=== PATIENT | male | born 1990 | race Caucasian/White ===

== ENCOUNTER 2018-02-14 21:48 | Emergency (ER) | payer MEDICAID ==
--- NOTE | 2018-02-14 21:59 | EDPHY ---
H & P Time Seen by Provider: 02/14/18 21:53 HPI/ROS: CHIEF COMPLAINT: Right foot pain HISTORY OF PRESENT ILLNESS: The patient is a 27-year-old healthy man who was trying to kick a ball for his dog when he accidentally kicked a tree stump. He had direct impact and pain to the bridge of his foot just below the ankle joint. This was several hours ago. He has not had any swelling but has pain with weight-bearing. No deformity. Denies ankle or knee injury. REVIEW OF SYSTEMS: Constitutional: denies: chills, fever, recent illness, recent injury EENTM: denies: blurred vision, double vision, nose congestion Respiratory: denies: cough, shortness of breath Cardiac: denies: chest pain, irregular heart rate, lightheadedness, palpitations Gastrointestinal/Abdominal: denies: abdominal pain, diarrhea, nausea, vomiting, blood streaked stools Genitourinary: denies: dysuria, frequency, hematuria, pain Musculoskeletal: See HPI Skin: denies: lesions, rash, jaundice, bruising Neurological: denies: headache, numbness, paresthesia, tingling, dizziness, weakness Hematologic/Lymphatic: denies: blood clots, easy bleeding, easy bruising Immunologic/allergic: denies: HIV/AIDS, transplant EXAM: GENERAL: Well-appearing, well-nourished and in no acute distress. HEAD: Atraumatic, normocephalic. EYES: Pupils equal round and reactive to light, extraocular movements intact, sclera anicteric, conjunctiva are normal. ENT: TMs normal, nares patent, oropharynx clear without exudates. Moist mucous membranes. NECK: Normal range of motion, supple without lymphadenopathy or JVD. LUNGS: Breath sounds clear to auscultation bilaterally and equal. No wheezes rales or rhonchi. HEART: Regular rate and rhythm without murmurs, rubs or gallops. ABDOMEN: Soft, nontender, normoactive bowel sounds. No guarding, no rebound. No masses appreciated. BACK: No CVA tenderness, no spinal tenderness, step-offs or deformities EXTREMITIES: No obvious deformity or swelling. Pain with weight-bearing in the area of the navicular bone. Normal range of motion, no pitting or edema. No clubbing or cyanosis. No pain to toes or metacarpal bone. NEUROLOGICAL: Cranial nerves II through XII grossly intact. Normal speech, normal gait. 5/5 strength, normal movement in all extremities, normal sensation PSYCH: Normal mood, normal affect. SKIN: Warm, dry, normal turgor, no visible rashes or lesions. Source: Patient Exam Limitations: No limitations - Medical/Surgical History Hx Asthma: No Hx Chronic Respiratory Disease: No Hx Diabetes: No Hx Cardiac Disease: No Hx Renal Disease: No Hx Cirrhosis: No Hx Alcoholism: No Hx HIV/AIDS: No Hx Splenectomy or Spleen Trauma: No - Social History Smoking Status: Former smoker Alcohol Use: Sober Constitutional: Initial Vital Signs Temperature (C) 37 C 02/14/18 22:03 Heart Rate 75 02/14/18 22:03 Respiratory Rate 16 02/14/18 22:03 Blood Pressure 135/76 H 02/14/18 22:03 O2 Sat (%) 96 02/14/18 22:03 O2 Delivery Mode Room Air Allergies/Adverse Reactions: clindamycin Allergy (Severe, Verified 02/14/18 22:03) Anaphylaxis Home Medications: Medication Instructions Recorded Chantix 07/05/16 Medical Decision Making - Diagnostics Imaging Results: Imaging Impressions Foot X-Ray 02/14/18 21:56 Impression: Equivocal fracture is seen at the base of the distal phalanx of the right first toe. Results called and discussed with ABHISHEK JANE M.D. on 02/14/2018 at 22:16.. Imaging: Discussed imaging studies w/ lockstitch pocket setter Radiologist Procedures: Procedure: Splint placement. A [place] boot splint was applied. After application of the splint I returned and re-examined the patient. The splint was adequately immobilizing the joint and distal to the splint the patient's circulation and sensation was intact. ED Course/Re-evaluation: We discussed the x-ray results. Patient is reassured. Replaced him in a [place] boot and encouraged early mobilization and weight-bearing as tolerated. He is happy with this and declines further workup or testing. Differential Diagnosis: Partial list of the Differential diagnosis considered include but were not limited to; contusion, fracture, ligamentous injury and although unlikely based on the history and physical exam, I also considered ankle injury, knee injury. I discussed these differential diagnoses and the plan with the patient as well as the usual and expected course. The patient understands that the diagnosis is provisional and that in medicine we are not always correct and that further workup is often warranted. Usual and customary warnings were given. All of the patient's questions were answered. The patient was instructed to return to the emergency department should the symptoms at all worsen or return, otherwise to followup with the physician as we discussed. Departure - Departure Disposition: Home, Routine, Self-Care Clinical Impression: Contusion of right foot Qualifiers: Encounter type: initial encounter Qualified Code(s): S90.31XA - Contusion of right foot, initial encounter Condition: Fair Instructions: Foot Sprain (ED) Referrals: Abner Burgess DPM [Doctor of Podiatric Medicine] - As per Instructions Stand Alone Forms: Work Excuse
[2018-02-14 22:06] VITALS: BP 135/76
== END 2018-02-14 22:33 | disposition home or self-care (01) ==
LOC: CED 21:48
DX: S90.31XA Contusion of right foot, initial encounter (principal); Z87.891 Personal history of nicotine dependence; W22.8XXA Striking against or struck by other objects, initial encounter; Y99.8 Other external cause status; Y93.89 Activity, other specified
CPT/HCPCS: 73630-PO; L4386

== ENCOUNTER 2018-11-14 11:04 | Emergency (ER) | payer MEDICAID ==
[2018-11-14] MEDS ORDERED: ASPIRIN 81 MG CHEWABLE TAB PO ONE (11:14)
--- NOTE | 2018-11-14 12:04 | EDPHY ---
H & P Stated Complaint: chest pain since 0700 this am Time Seen by Provider: 11/14/18 11:43 HPI/ROS: This patient describes chest pressure of moderate intensity since shortly after 7:00 a.m. This morning. He has had similar episodes of chest pressure at times over the past 3 years and in June of 2016 underwent cardiac catheterization by Dr. Newman which demonstrated normal coronary arteries at that time. He also has had syncope that was abrupt in the past which triggered further workup that included a Holter monitor with either frequent PACs or runs of paroxysmal AFib by his description. He also had a cardiac stress test which was normal per his report. He sees Dr. Russell and he reports that he just finished another outpatient Holter monitor after being started on a rivf-[id number]-iyzzsfshth 25 mg daily in the evening. He completed the Holter monitor on November 07 but does know the results yet. He has the sense that he gets the same pressure when he is having atrial fibrillation in the past. He reports some lightheadedness sister this morning symptoms and no other exacerbating factors or associated symptoms. ROS: Constitutional: No fevers or chills recently. Denies fatigue HEENT: No URI symptoms or other complaints pulmonary: No dyspnea Cardiovascular: No lower extremity swelling. Pain does not radiate to his back. No jaw or arm pain. Peak intensity 7/10, currently 3/10. GI: No nausea Integumentary: No diaphoresis or pallor. 10 point review of symptoms is performed and otherwise negative with exception of pertinent positives and negatives listed in HPI and ROS Source: Patient Exam Limitations: No limitations - Personal History Current Tetanus Diphtheria and Acellular Pertussis (TDAP): Yes - Medical/Surgical History PMH: Normal coronary arteries on cardiac catheterization by Dr. 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 - Family History Significant Family History: Heart disease - Social History Smoking Status: Former smoker Alcohol Use: None Drug Use: None - Physical Exam Exam: General Appearance: Alert, no distress. Eyes: Pupils equal and round no pallor or injection. ENT, Mouth: Mucous membranes moist. Respiratory: There are no retractions, lungs are clear to auscultation. Cardiovascular: Regular most the time occasional gallops. No murmur gallop rub. No peripheral edema. Gastrointestinal: Abdomen is soft and nontender, no masses, bowel sounds normal. Neurological: GCS 15 Skin: Warm and dry, no rashes. Musculoskeletal: Neck is supple nontender. Extremities are symmetrical, full range of motion. Psychiatric: Mood and affect are normal DIFFERENTIAL DIAGNOSIS: After history and physical exam differential diagnosis was considered for paroxysmal AFib, GERD, pneumonia, pneumothorax, PE Constitutional: Initial Vital Signs Temperature (C) 37.1 C 11/14/18 11:09 Heart Rate 57 L 11/14/18 11:09 Respiratory Rate 16 11/14/18 11:09 Blood Pressure 141/87 H 11/14/18 11:09 O2 Sat (%) 97 11/14/18 11:09 O2 Delivery Mode Room Air Allergies/Adverse Reactions: clindamycin Allergy (Severe, Verified 11/14/18 13:43) Anaphylaxis Home Medications: Medication Instructions Recorded Metoprolol Succinate 11/14/18 Medical Decision Making - Diagnostics EKG Interpretation: 12 lead EKG performed shortly after arrival at 11:20 a.m. Reveals sinus rhythm at 54 Intervals: Normal throughout [place]: Normal throughout Overall assessment: Early repolarization anterior leads, PACs Repeat EKG performed at 2:31 p.m. To evaluate for any interval change sinus rhythm at 57 intervals: Normal throughout Early report pattern with again PACs. No interval change from 1st EKG by my interpretation Imaging Results: Imaging Impressions Chest X-Ray 11/14/18 12:52 Impression: Possible airways disease. Two view chest x-ray: Normal by my interpretation Imaging: I viewed and interpreted images myself ED Course/Re-evaluation: IV, monitor, saline bolus Patient remained stable on the monitor with occasional PACs verses brief runs of slow AFib rate never exceeded the 60s at times the 50s. Maalox and Levsin without significant change in his discomfort she remained 2-3 pressure-like in sensation. Studies: Normal CBC, basic metabolic panel, troponin and D-dimer. Chest x-ray also normal. I spoke with Anders, mid-level practitioner with [facility] who reviewed the patient's Holter monitor completed 5 days prior to arrival and noted fleeting episodes of atrial fibrillation associated with chest discomfort lasted no more than a few minutes at a time and comprised less than 1% of the total duration of time. Patient also had frequent PACs. He suggests that we start the patient on baby aspirin a day and continue the current metoprolol 25 mg a day. Anders will facilitate close follow up with Dr. Russell, patient's marketing operations assistant. Counseled patient has normal studies. He explains that he had a recent Holter monitor and has a follow-up appointment set for the of this month with Cardiology. He had swelling to make sure there were no new problems and thinks that this current chest pressure is consistent with his previous chest pressure he has had with PACs or brief AFib. He is offered admission for some ongoing discomfort but declines at this time. - Data Points Laboratory Results: 11/14/18 11/14/18 11:39 11:34 POC Sodium 141 mEq/L mEq/L (135-145) POC Potassium 4.1 mEq/L mEq/L (3.3-5.0) POC Chloride 105.0 mEq/L mEq/L (97-110) POC Total CO2 26 mEq/L mEq/L (22-31) POC BUN 9 mg/dL mg/dL (7-23) POC Creatinine 0.7 mg/dL mg/dL (0.7-1.3) POC Glucose 99 mg/dL mg/dL (70-100) POC Calcium 10.3 mg/dL mg/dL (8.5-10.4) POC Troponin I 0.00 ng/mL ng/mL (0.00-0.08) Medications Given: Discontinued Medications Al Hydroxide/Mg Hydroxide (Maalox Susp) 30 ml PO EDNOW ONE Stop: 11/14/18 13:28 Last Admin: 11/14/18 14:00 Dose: 30 ml Aspirin (Aspirin) 324 mg PO EDNOW ONE Stop: 11/14/18 11:15 Last Admin: 11/14/18 11:25 Dose: 324 mg Hyoscyamine Sulfate (Levsin, Hyomax-Sl) 0.125 mg PO EDNOW ONE Stop: 11/14/18 13:28 Last Admin: 11/14/18 14:00 Dose: 0.125 mg Sodium Chloride (Ns) 1,000 mls @ 0 mls/hr IV ONCE ONE; Wide Open PRN Reason: Protocol Stop: 11/14/18 14:26 Last Admin: 11/14/18 14:29 Dose: 1,000 mls Point of Care Test Results: CBC CBC Collection Date 11/14/18 CBC Collection Time 11:31 WBC 5.64 RBC 5.27 HGB 16.1 HCT 46.5 PLT 185 Neut # 3.09 Neut 54.6 LYMPH # 1.74 LYMPH 30.9 MCV 88.2 Chemistry 11/14/18 11/14/18 11:39 11:34 POC Sodium 141 mEq/L mEq/L (135-145) POC Potassium 4.1 mEq/L mEq/L (3.3-5.0) POC Chloride 105.0 mEq/L mEq/L (97-110) POC Total CO2 26 mEq/L mEq/L (22-31) POC BUN 9 mg/dL mg/dL (7-23) POC Creatinine 0.7 mg/dL mg/dL (0.7-1.3) POC Glucose 99 mg/dL mg/dL (70-100) POC Calcium 10.3 mg/dL mg/dL (8.5-10.4) POC Troponin I 0.00 ng/mL ng/mL (0.00-0.08) D-Dimer D-Dimer Collection Date 11/14/18 D-Dimer Collection Time 11:31 D-Dimer (ng/ml) LESS THAN 100 Departure - Departure Disposition: Home, Routine, Self-Care Clinical Impression: Acute chest pain, Premature atrial contractions Condition: Good Instructions: Chest Pain (ED) Additional Instructions: Diagnosis: Acute chest pain Today your chest x-ray, blood count, heart enzyme and D-dimer are normal. You EKG also appears normal exception of a few premature atrial contractions. The cause of your chest pain is unclear. Plan: Start taking a baby aspirin (81mg) a day. Continue your metoprolol. Consider trying antacids as sometimes people have acid reflux causing soft feel discomfort. Call your marketing operations assistant arrange follow-up appointment for further evaluation for any ongoing symptoms. Return emergency department for any significant worsening of her symptoms Referrals: [facility] [Primary Care Provider] - As per Instructions Joe Russell MD [Medical Doctor] - As per Instructions
[2018-11-14] MEDS ORDERED: HYOSCYAMINE SULFATE 0.125 MG TAB PO ONE (13:27)
[2018-11-14] MEDS ORDERED: MAG HYDROX/AL HYDROX/SIMETH 30 ML UDCUP PO ONE (13:27)
[2018-11-14] MEDS ORDERED: NS 1,000 ML IV ONE (14:25)
--- NOTE | 2018-11-14 14:38 | CPEKG ---
Test Reason : OPEN Blood Pressure : / mmHG Vent. Rate : 054 BPM Atrial Rate : 000 BPM P-R Int : 126 ms QRS Dur : 092 ms QT Int : 398 ms P-R-T Axes : 049 001 040 degrees QTc Int : 378 ms Sinus rhythm Atrial premature complexes ST elev, probable normal early repol pattern Confirmed by Zhang Quinn ([id number]) on 11/14/2018 2:38:23 PM Referred By: PHYSICIAN ED Confirmed By:Zhang Quinn
--- NOTE | 2018-11-14 14:38 | CPEKG ---
Test Reason : OPEN Blood Pressure : / mmHG Vent. Rate : 057 BPM Atrial Rate : 059 BPM P-R Int : 162 ms QRS Dur : 081 ms QT Int : 412 ms P-R-T Axes : -07 -01 035 degrees QTc Int : 401 ms Sinus rhythm Atrial premature complexes Probable left atrial enlargement ST elev, probable normal early repol pattern Confirmed by Carley Busby ([id number]) on 11/14/2018 2:38:00 PM Referred By: CARLEY BUSBY Confirmed By:Carley Busby
[2018-11-14 15:17] VITALS: BP 127/86
== END 2018-11-14 15:00 | disposition home or self-care (01) ==
LOC: CED 11:04
DX: R07.89 Other chest pain (principal); I49.1 Atrial premature depolarization; I48.0 Paroxysmal atrial fibrillation; E86.9 Volume depletion, unspecified; Z87.891 Personal history of nicotine dependence
CPT/HCPCS: 71046-PO; 80048-ER; 84484-ER; 85025-QW-ER; 85379-QW-ER; 96360-ER; 99284-ER

== ENCOUNTER 2018-11-18 17:54 | Inpatient (IN) | payer MEDICAID ==
--- NOTE | 2018-11-18 18:12 | EDPHY ---
H & P Stated Complaint: CP/AFTER TAKING ISOSORBIDE MONONITRATE Time Seen by Provider: 11/18/18 18:11 HPI/ROS: HPI CHIEF COMPLAINT: Headache, nausea, vomiting, chest pain after taking isosorbide mononitrate HISTORY OF PRESENT ILLNESS: A 28-year-old male, presents to the emergency room after he took a dose of Isosorbinide mononitrate, after as prescribed this today by Dr. Russell, he was prescribed this today, took a dose around 230 in the afternoon he was taking this to see if it helps with his chest pressure that he chronically has. He reports shortly after taking this he developed a headache felt very nauseous felt like he was going to pass out, developed chest pain. He states pressure in his chest got worse. He then vomited multiple times. States he feels "awful" Patient is followed by Dr. Russell, for ongoing chest pain evaluation. He had a normal cardiac catheterization 2015. Recently had a Holter monitor. Past Medical History: Denies significant medical history Past Surgical History: Denies recent surgical history Social History: Denies daily use of drugs alcohol tobacco. Family History: Extensive family history of cardiac disease including his father and his grandfather. ROS REVIEW OF SYSTEMS: 10 Systems were reviewed and negative with the exception of the elements mentioned in the history of present illness. Exam Constitutional triage nursing summary reviewed, vital signs reviewed, awake/ alert. Eyes normal conjunctivae and sclera, EOMI, PERRLA. HENT normal inspection, atraumatic, moist mucus membranes, no epistaxis, neck supple/ no meningismus, no raccoon eyes. Respiratory clear to auscultation bilaterally, normal breath sounds, no respiratory distress, no wheezing. Cardiovascular rate normal, regular rhythm, no murmur, no edema, distal pulses normal. Gastrointestinal soft, non-tender, no rebound, no guarding, normal bowel sounds, no distension, no pulsatile mass. Genitourinary no CVA tenderness. Musculoskeletal no midline vertebral tenderness, full range of motion, no calf swelling, no tenderness of extremities, no meningismus, good pulses, neurovascularly intact. Skin pink, warm, & dry, no rash, skin atraumatic. Neurologic awake, alert and oriented x 3, AAOx3, moves all 4 extremities equally, motor intact, sensory intact, CN II-XII intact, normal cerebellar, normal vision, normal speech. Psychiatric normal mood/affect. Heme/Lymph/Immune no lymphadenopathy. Differential Diagnosis: Differential diagnosis includes but is not limited to: ACS, atypical chest pain, pneumothorax, pneumonia, pulmonary embolism, aortic dissection, congestive heart failure, tumor, musculoskeletal pain, esophageal pain, GERD, peptic ulcer disease, pancreatitis Medical Decision Making: Plan for this patient IV establishment IV fluid bolus , Zofran as needed for nausea, basic labs, monitoring tech. EKG, troponin. Re-evaluation: EKG interpretation by me on record in [facility] system. Impression time of EKG 18 14, sinus rhythm rate of 47 early Re-dorene pattern present. No acute ischemia. Very similar to previous EKGs specifically 11/14/2018. I do not appreciate acute change. I spoke with Cardiology Dr. Russell, reviewed the case in detail. He would like the patient be admitted for gentle IV fluids overnight and nausea medicine re- evaluation. Here in emergency room I do have a great explanation for his chest pain. His EKG is nonischemic, troponin negative, D-dimer negative, chest x-ray stable. Plan for admission to the hospitalist service Dr. Duenas. 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 - Social History Smoking Status: Former smoker Constitutional: Initial Vital Signs Heart Rate 59 L 11/18/18 18:00 Respiratory Rate 16 11/18/18 18:00 Blood Pressure 126/78 H 11/18/18 18:00 O2 Sat (%) 97 11/18/18 18:00 O2 Delivery Mode Nasal Cannula O2 (L/minute) 1 Allergies/Adverse Reactions: clindamycin Allergy (Severe, Verified 11/14/18 13:43) Anaphylaxis Home Medications: Medication Instructions Recorded Metoprolol Tartrate 25 mg PO HS 11/14/18 Ibuprofen [Motrin (*)] 600 mg PO Q6H PRN tab 11/20/18 Medical Decision Making - Data Points Laboratory Results: Laboratory Results 11/18/18 18:10 11/18/18 18:10 Medications Given: Discontinued Medications Acetaminophen (Tylenol) 1,000 mg PO EDNOW ONE Stop: 11/18/18 19:42 Last Admin: 11/18/18 19:44 Dose: 1,000 mg Acetaminophen/Butalbital/Caffeine (Fioricet) 1 each PO Q6HRS PRN PRN Reason: Headache Stop: 11/28/18 20:54 Last Admin: 11/18/18 23:54 Dose: 1 each Aspirin (Aspirin) 81 mg PO DAILY LILIA Stop: 05/18/19 08:59 Last Admin: 11/20/18 09:00 Dose: Not Given Sodium Chloride (Ns) 1,000 mls @ 0 mls/hr IV EDNOW ONE; Wide Open PRN Reason: Protocol Stop: 11/18/18 18:15 Last Admin: 11/18/18 18:25 Dose: 1,000 mls Sodium Chloride (Ns) 1,000 mls @ 0 mls/hr IV ONCE ONE PRN Reason: Wide Open Stop: 11/18/18 18:24 Last Admin: 11/18/18 18:25 Dose: 1,000 mls Sodium Chloride (Ns) 1,000 mls @ 125 mls/hr IV CONT LILIA Stop: 11/20/18 04:59 Last Admin: 11/19/18 06:36 Dose: 1,000 mls Ibuprofen (Motrin) 600 mg PO Q6H PRN PRN Reason: Pain, Mild Stop: 05/17/19 20:49 Last Admin: 11/19/18 10:14 Dose: 600 mg Metoprolol Tartrate (Lopressor) 25 mg PO HS LILIA Stop: 05/17/19 20:59 Last Admin: 11/19/18 21:48 Dose: 25 mg Ondansetron HCl (Zofran) 4 mg IVP EDNOW ONE Stop: 11/18/18 18:25 Last Admin: 11/18/18 18:27 Dose: 4 mg Tramadol HCl (Ultram) 50 mg PO ONCE ONE Stop: 11/19/18 04:33 Last Admin: 11/19/18 04:51 Dose: 50 mg Point of Care Test Results: Chemistry 11/18/18 18:14 POC Troponin I 0.00 ng/mL ng/mL (0.00-0.08) Departure - Departure Disposition: [facility] Acute Clinical Impression: Chest pain Qualifiers: Chest pain type: unspecified Qualified Code(s): R07.9 - Chest pain, unspecified Condition: Fair
[2018-11-18] MEDS ORDERED: NS 1,000 ML IV ONE ×2 (18:14→18:23)
[2018-11-18] MEDS ORDERED: ONDANSETRON 4 MG/2 ML VIAL IVP ONE (18:24)
[2018-11-18 18:29] LABS: PLATELET COUNT 211 10^3/uL (150-400)
[2018-11-18] MEDS ORDERED: ACETAMINOPHEN 500 MG TAB PO ONE (19:41)
[2018-11-18] MEDS ORDERED: PROMETHAZINE HCL 25 MG/ML INJ IVP PRN (20:46)
[2018-11-18] MEDS ORDERED: ACETAMINOPHEN 325 MG TAB PO PRN (20:46)
[2018-11-18] MEDS ORDERED: ONDANSETRON 4 MG/2 ML VIAL IVP PRN (20:46)
[2018-11-18] MEDS ORDERED: ONDANSETRON DISINTEGRATING 4 MG TAB PO PRN (20:46)
[2018-11-18] MEDS ORDERED: ACET/CAFFEINE/BUTA FIORICET 1 EACH TAB PO PRN (20:55)
--- NOTE | 2018-11-18 21:08 | PDGENHP ---
<Jennifer Merida - Last Filed: 11/18/18 21:56> History and Physical - Chief Complaint Severe headache, vomiting, nausea - History of Present Illness This is a 28-year-old male with history of chronic chest pain, onset was in 2016 and current being followed by Dr. Joe Russell. Today he presented to the emergency room with his after taking a dose of isosorbide mononitrate which was prescribed today by Dr. Russell. Shortly after taking this medication he experienced severe headache, nausea, lightheadedness, and vomiting multiple times; during this time his chest pain worsened. He had a [facility] office visit today as he continue to note episodic chest discomfort; he was recently placed on a Holter monitor with the results revealing atrial fibrillation burden of approximately less than 1% (5 min of atrial fibrillation was noted on 10/18/2018 early in the morning). In the past, he has had normal cardiac catheterization testing which was in 2016 and an exercise stress test treadmill with no arrhythmias noted. The patient has been compliant with his medications which include aspirin and metoprolol. He recently visited the emergency room on 11/14/2018 for similar chest pain complaints. Today while working with Dr. Russell, he wanted the patient to trial a low-dose Imdur. Endorses very mild chest pain complaints located midsternal area. Endorses continuation of severe headache with mild nausea. Denies shortness of breath, fever, chills, or difficulty urinating or having bowel movements. Chest x-ray today shows mild peribronchial thickening suggestive of reactive small airways as can be seen in bronchitis or asthma. He was a former smoker, stopped 1 year ago. EKG was in sinus rhythm and normal axis with no acute ischemia noted; EKG was very similar to previous EKG on 11/14/2018. He is being admitted for further workup, treatment and monitoring. 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 White blood count: 9 point to to Hemoglobin and hematocrit: 16.2 and 46.5 Platelet count: 211 Sodium: 140 Potassium: 3.9 Chloride; 104 Carbon dioxide: 25 BUN/Cr: 18/1.0 D-dimer: Less than 0.27 Toxicity screen: Negative Troponin: 0.00 EKG: See HPI Chest x-ray: See HPI Temp Pulse Resp BP Pulse Ox 36.7 C 70 17 114/79 97 11/18/18 19:45 11/18/18 20:47 11/18/18 20:47 11/18/18 20:21 11/18/18 20:47 Constitutional: uncomfortable Eyes: PERRL, anicteric sclera, EOMI Ears, Nose, Mouth, Throat: hearing normal, ears appear normal, no oral mucosal ulcers, dry mucous membranes Cardiovascular: regular rate and rhythym, no murmur, rub, or gallop, No edema Peripheral Pulses: 2+: dorsalis-pedis (R), dorsalis-pedis (L) Respiratory: no respiratory distress, no rales or rhonchi, clear to auscultation Gastrointestinal: normoactive bowel sounds, soft, non-tender abdomen, no palpable masses Genitourinary: no bladder fullness, no bladder tenderness Skin: warm, normal color, no rashes or abrasions, no fluctuance, no induration, No mottled Musculoskeletal: full muscle strength, no muscle tenderness, normal joint ROM, no joint effusions Neurologic: AAOx3, sensation intact bilaterally, CN II-XII Intact Psychiatric: interacting appropriately, not anxious, not encephalopathic, thought process linear Lymph, Heme, Immunologic: no cervical LAD, no supraclavicular LAD Lab Data & Imaging Review 11/18/18 18:10 11/18/18 18:10 WBC 9.22 10^3/uL (3.80-9.50) 11/18/18 18:10 RBC 5.22 10^6/uL (4.40-6.38) 11/18/18 18:10 Hgb 16.2 g/dL (13.7-17.5) 11/18/18 18:10 Hct 46.5 % (40.0-51.0) 11/18/18 18:10 MCV 89.1 fL (81.5-99.8) 11/18/18 18:10 MCH 31.0 pg (27.9-34.1) 11/18/18 18:10 MCHC 34.8 g/dL (32.4-36.7) 11/18/18 18:10 RDW 12.4 % (11.5-15.2) 11/18/18 18:10 Plt Count 211 10^3/uL (150-400) 11/18/18 18:10 MPV 10.8 fL (8.7-11.7) 11/18/18 18:10 Neut % (Auto) 63.0 % (39.3-74.2) 11/18/18 18:10 Lymph % (Auto) 24.2 % (15.0-45.0) 11/18/18 18:10 Linn % (Auto) 8.8 % (4.5-13.0) 11/18/18 18:10 Eos % (Auto) 3.4 % (0.6-7.6) 11/18/18 18:10 Baso % (Auto) 0.4 % (0.3-1.7) 11/18/18 18:10 Nucleat RBC Rel Count 0.0 % (0.0-0.2) 11/18/18 18:10 Absolute Neuts (auto) 5.81 10^3/uL (1.70-6.50) 11/18/18 18:10 Absolute Lymphs (auto) 2.23 10^3/uL (1.00-3.00) 11/18/18 18:10 Absolute Monos (auto) 0.81 10^3/uL (0.30-0.80) H 11/18/18 18:10 Absolute Eos (auto) 0.31 10^3/uL (0.03-0.40) 11/18/18 18:10 Absolute Basos (auto) 0.04 10^3/uL (0.02-0.10) 11/18/18 18:10 Absolute Nucleated RBC 0.00 10^3/uL (0-0.01) 11/18/18 18:10 Immature Gran % 0.2 % (0.0-1.1) 11/18/18 18:10 Immature Gran # 0.02 10^3/uL (0.00-0.10) 11/18/18 18:10 D-Dimer < 0.27 ug/mLFEU (0.00-0.50) 11/18/18 18:10 Sodium 140 mEq/L (135-145) 11/18/18 18:10 Potassium 3.9 mEq/L (3.5-5.2) 11/18/18 18:10 Chloride 104 mEq/L (97-110) 11/18/18 18:10 Carbon Dioxide 25 mEq/l (22-31) 11/18/18 18:10 Anion Gap 11 mEq/L (6-14) 11/18/18 18:10 BUN 18 mg/dL (7-23) 11/18/18 18:10 Creatinine 1.0 mg/dL (0.7-1.3) 11/18/18 18:10 Estimated GFR > 60 11/18/18 18:10 Glucose 90 mg/dL (70-100) 11/18/18 18:10 Calcium 9.5 mg/dL (8.5-10.4) 11/18/18 18:10 Magnesium 1.8 mg/dL (1.6-2.3) 11/18/18 18:10 Total Bilirubin 0.6 mg/dL (0.1-1.4) 11/18/18 18:10 Conjugated Bilirubin 0.3 mg/dL (0.0-0.5) 11/18/18 18:10 Unconjugated Bilirubin 0.3 mg/dL (0.0-1.1) 11/18/18 18:10 AST 28 IU/L (17-59) 11/18/18 18:10 ALT 58 IU/L (21-72) 11/18/18 18:10 Alkaline Phosphatase 45 IU/L (38-126) 11/18/18 18:10 POC Troponin I 0.00 ng/mL (0.00-0.08) 11/18/18 18:14 NT-Pro-B Natriuret Pep < 11 pg/mL (0-125) 11/18/18 18:10 Total Protein 7.4 g/dL (6.3-8.2) 11/18/18 18:10 Albumin 4.5 g/dL (3.5-5.0) 11/18/18 18:10 Lipase 166 IU/L (23-300) 11/18/18 18:10 Urine Opiates Screen NEGATIVE (NEGATIVE) 11/18/18 19:37 Urine Barbiturates NEGATIVE (NEGATIVE) 11/18/18 19:37 Ur Phencyclidine Scrn NEGATIVE (NEGATIVE) 11/18/18 19:37 Ur Amphetamine Screen NEGATIVE (NEGATIVE) 11/18/18 19:37 U Benzodiazepines Scrn NEGATIVE (NEGATIVE) 11/18/18 19:37 Urine Cocaine Screen NEGATIVE (NEGATIVE) 11/18/18 19:37 U Marijuana (THC) Screen NEGATIVE (NEGATIVE) 11/18/18 19:37 Assessment & Plan Plan: This is a 28-year-old male who is relatively healthy who has chronic chest pain , he is being current [place] followed by Dr. Joe Russell who saw the patient today at his clinic and initiated Imdur along with his typical aspirin and metoprolol. Pretty soon after taking Imdur he experienced a severe headache, nausea, and vomiting and complained of worsening chest pain. At present moment , chest pain is quite mild. Initial troponin presenting to the emergency room was 0.00. His vital signs are: Blood pressure 105/70, heart rate 60, respirations 16, temperature 36.7 degrees, and 97% on room air. #Nausea and vomiting -Received 2 L NS in ED; cont IVF x 2 bags -Anti-emetics PRN #Severe headache -Received 1gm Tylenol in ED; tylenol, Fioricet or ibuprofen PRN #Atypical chest pain -Holding imdur, cont metoprolol and ASA -Consulted cards who will evaluate the pt in AM -Check troponin in AM -Cont tele monitoring -EKG PRN if symptomatic or worsens Diet: Regular VTE ppx: Low risk Code: Full Dispo: Admit to obs <Brittni Duenas - Last Filed: 11/18/18 22:23> History and Physical - History of Present Illness Review of Systems Review of Systems: Physical Exam Physical Exam: Temp Pulse Resp BP Pulse Ox 36.5 C 66 16 107/63 93 11/18/18 21:37 11/18/18 21:37 11/18/18 21:37 11/18/18 21:37 11/18/18 21:37 Lab Data & Imaging Review 11/18/18 18:10 11/18/18 18:10 WBC 9.22 10^3/uL (3.80-9.50) 11/18/18 18:10 RBC 5.22 10^6/uL (4.40-6.38) 11/18/18 18:10 Hgb 16.2 g/dL (13.7-17.5) 11/18/18 18:10 Hct 46.5 % (40.0-51.0) 11/18/18 18:10 MCV 89.1 fL (81.5-99.8) 11/18/18 18:10 MCH 31.0 pg (27.9-34.1) 11/18/18 18:10 MCHC 34.8 g/dL (32.4-36.7) 11/18/18 18:10 RDW 12.4 % (11.5-15.2) 11/18/18 18:10 Plt Count 211 10^3/uL (150-400) 11/18/18 18:10 MPV 10.8 fL (8.7-11.7) 11/18/18 18:10 Neut % (Auto) 63.0 % (39.3-74.2) 11/18/18 18:10 Lymph % (Auto) 24.2 % (15.0-45.0) 11/18/18 18:10 Linn % (Auto) 8.8 % (4.5-13.0) 11/18/18 18:10 Eos % (Auto) 3.4 % (0.6-7.6) 11/18/18 18:10 Baso % (Auto) 0.4 % (0.3-1.7) 11/18/18 18:10 Nucleat RBC Rel Count 0.0 % (0.0-0.2) 11/18/18 18:10 Absolute Neuts (auto) 5.81 10^3/uL (1.70-6.50) 11/18/18 18:10 Absolute Lymphs (auto) 2.23 10^3/uL (1.00-3.00) 11/18/18 18:10 Absolute Monos (auto) 0.81 10^3/uL (0.30-0.80) H 11/18/18 18:10 Absolute Eos (auto) 0.31 10^3/uL (0.03-0.40) 11/18/18 18:10 Absolute Basos (auto) 0.04 10^3/uL (0.02-0.10) 11/18/18 18:10 Absolute Nucleated RBC 0.00 10^3/uL (0-0.01) 11/18/18 18:10 Immature Gran % 0.2 % (0.0-1.1) 11/18/18 18:10 Immature Gran # 0.02 10^3/uL (0.00-0.10) 11/18/18 18:10 D-Dimer < 0.27 ug/mLFEU (0.00-0.50) 11/18/18 18:10 Sodium 140 mEq/L (135-145) 11/18/18 18:10 Potassium 3.9 mEq/L (3.5-5.2) 11/18/18 18:10 Chloride 104 mEq/L (97-110) 11/18/18 18:10 Carbon Dioxide 25 mEq/l (22-31) 11/18/18 18:10 Anion Gap 11 mEq/L (6-14) 11/18/18 18:10 BUN 18 mg/dL (7-23) 11/18/18 18:10 Creatinine 1.0 mg/dL (0.7-1.3) 11/18/18 18:10 Estimated GFR > 60 11/18/18 18:10 Glucose 90 mg/dL (70-100) 11/18/18 18:10 Calcium 9.5 mg/dL (8.5-10.4) 11/18/18 18:10 Magnesium 1.8 mg/dL (1.6-2.3) 11/18/18 18:10 Total Bilirubin 0.6 mg/dL (0.1-1.4) 11/18/18 18:10 Conjugated Bilirubin 0.3 mg/dL (0.0-0.5) 11/18/18 18:10 Unconjugated Bilirubin 0.3 mg/dL (0.0-1.1) 11/18/18 18:10 AST 28 IU/L (17-59) 11/18/18 18:10 ALT 58 IU/L (21-72) 11/18/18 18:10 Alkaline Phosphatase 45 IU/L (38-126) 11/18/18 18:10 POC Troponin I 0.00 ng/mL (0.00-0.08) 11/18/18 18:14 NT-Pro-B Natriuret Pep < 11 pg/mL (0-125) 11/18/18 18:10 Total Protein 7.4 g/dL (6.3-8.2) 11/18/18 18:10 Albumin 4.5 g/dL (3.5-5.0) 11/18/18 18:10 Lipase 166 IU/L (23-300) 11/18/18 18:10 Urine Opiates Screen NEGATIVE (NEGATIVE) 11/18/18 19:37 Urine Barbiturates NEGATIVE (NEGATIVE) 11/18/18 19:37 Ur Phencyclidine Scrn NEGATIVE (NEGATIVE) 11/18/18 19:37 Ur Amphetamine Screen NEGATIVE (NEGATIVE) 11/18/18 19:37 U Benzodiazepines Scrn NEGATIVE (NEGATIVE) 11/18/18 19:37 Urine Cocaine Screen NEGATIVE (NEGATIVE) 11/18/18 19:37 U Marijuana (THC) Screen NEGATIVE (NEGATIVE) 11/18/18 19:37 Assessment & Plan Assessment: Chest pain (Acute) Plan: Patient seen and evaluated independently and care plan reviewed with ANGUS Merida, agree with her assessment and plan as outlined above. Please see separate documentation for further details.
[2018-11-18] MEDS: METOPROLOL TARTRATE 25 MG TAB PO SCH (21:28)
[2018-11-18] MEDS: IBUPROFEN 600 MG TAB PO PRN (21:29)
[2018-11-18] MEDS: NS 1,000 ML IV SCH (22:23)
--- NOTE | 2018-11-18 22:28 | HOSPPROG ---
Hospitalist Progress Note Assessment/Plan: 28 yo M with family hx of CAD and hx of recurrent chest pain of uncertain etiology presenting from cardiology office with severe chest pain, headache, nausea and vomiting following taking a 10mg imdur. # chest pain: severe initially, now resolved but back to his usual chronic baseline chest pain. He is followed by cardiology for this, has had cardiac cath in 2017, stress test, holter monitor and no clear etiology found. He continues to experience dull chest pain/pressure nearly continuously, worse with exertion of unclear etiology. Today given a dose of imdur by cardiology, and shortly after that with severe chest pain/tong/n/v. Plan to monitor overnight on tele, serial trops/serial ecg. Cardiology to evaluate in am. # headache/nausea/vomiting: reportedly initially severe, now main sxs is headache. Seems strange as a reaction to low dose isosorbide mononitrate, but certainly sxs developed immediately after taking it, as above. Labs unremarkable , drug screen negative # paroxysmal a fib: patient recently turned his holter monitor in and found to have short runs of a fib, unclear if this is related to his recurrent chest pain given that it is not very frequent, on metoprolol as an OP # observation status Patient new to my care. Old records reviewed and summarized as above. Care plan reviewed with ER doctor and [employer] Fuad, please see her separate documentation for further details. Objective: Vital Signs Temp Pulse Resp BP Pulse Ox 36.5 C 66 16 107/63 93 11/18/18 21:37 11/18/18 21:37 11/18/18 21:37 11/18/18 21:37 11/18/18 21:37 11/17/18 11/18/18 11/19/18 05:59 05:59 05:59 Intake Total 2000 Output Total 400 Balance 1600 ICD10 Worksheet Patient Problems: Problems Problem Status Onset Chest pain Acute
[2018-11-19] MEDS ORDERED: traMADol 50 MG TAB PO ONE (04:32)
[2018-11-19] MEDS: NS 1,000 ML IV SCH (06:36)
[2018-11-19] MEDS: ASPIRIN 81 MG CHEWABLE TAB PO SCH (09:12)
[2018-11-19] MEDS: IBUPROFEN 600 MG TAB PO PRN (10:14)
--- NOTE | 2018-11-19 14:11 | ECHO ---
[email or web address] [address] Main: [phone] Echocardiography Examination Transthoracic Name: LEIGH WARD MR#: [id number] Study Date: 11/19/2018 Study Time: 11:49 AM Date of : 1990 Age: 28 year(s) Height: 182.9 cm (72 in.) Weight: 77.57 kg (171 lb.) BSA: 1.99 m2 Gender: Male Examination: Echo Contrast: Image Quality: Rhythm: Normal sinus rhythm with ectopy Heart Rate: 66 bpm BP: 113 mmHg/64 mmHg Indication: Chest Pain Procedure Staff Referring Physician: Manager Banquet: Jarett Garcia RDCS Reading Physician: Kem Solomon MD Requesting Provider: Ordering Physician: Kem Solomon Indication: Chest Pain Measurements Chambers AV/MV Label Value Normal Value Label Value Normal Value LVOT Vmax 0.95 m/s (0.7m/s - 1.1m/s) AR PHT 0.45 s LVOTd 2.1 cm (1.9cm - 2.1cm) AR PHT 448 ms LVOT VTI 21.6 cm (18cm - 22cm) AR Vmax 2.4 m/s LVDd, 2D 4.8 cm (4.2cm - 5.9cm) AV PGmax 7 mmHg LVDs, 2D 2.9 cm (2.1cm - 4cm) AV PGmean 3 mmHg IVSd, 2D 0.8 cm (0.6cm - 1.1cm) AV Vmax 1.3 m/s LVPWd, 2D 0.9 cm (0.6cm - 1cm) TRIPP (Vmax) 2.5 cm2 LVEF, 2D 69 % (54% - 74%) TRIPP (VTI) 3.1 cm2 LVOT PGmean 2 mmHg MV E Vmax 0.84 m/s LVOT Vmean 0.6 m/s MV A Vmax 0.5 m/s RVDd, 2D 1.7 cm (1.9cm - 3.8cm) MV E/A 1.68 LA Volume, BP 41 ml (18ml - 58ml) MV E/E' lateral 6.1 LAESV index, BP 20.6 ml/m2 MV E/E' septal 7.4 (0.6 - 2.6) Additional Vessels MV E' septal 0.11 m/s Label Value Normal Value MV E' lateral 0.14 m/s AoAsc 3.1 cm MV E/E' mean 6.72 AoRoot, MM 3.7 cm (2.2cm - 3.7cm) MV E' mean 0.12 m/s TV/PV Label Value Normal Value Patient: LEIGH WARD Study Date: 11/19/2018 Page 1 of 3 11:49 AM PV PGmax 4 mmHg PV Vmax, Caliper 1.05 m/s (0.6m/s - 0.9m/s) Conclusions Normal Echocardiogram. Left Ventricle: Left ventricle is normal in size. EF range is estimated at 60 % - 65 %. There are no regional wall motion abnormalities. Right Ventricle: Right ventricular systolic function is normal. Pericardium: No pericardial effusion. Findings Left Ventricle: Left ventricle is normal in size. Normal global systolic left ventricular function. EF range is estimated at 60 % - 65 %. Left ventricle wall thickness is normal. There are no regional wall motion abnormalities. Left ventricular diastolic function parameters are normal. IVS: The septum is intact. Right Ventricle: Normal size right ventricle. Right ventricular systolic function is normal. Left Atrium: The left atrium is normal in size. IAS: Normal appearing atrial septum. Right Atrium: The right atrium is normal in size. Mitral Valve: Mitral valve appears structurally normal. No mitral regurgitation. No mitral valve stenosis. Aortic Valve: Aortic leaflets exhibit normal cuspal separation. Trivial aortic regurgitation is present. There is no aortic stenosis. The aortic valve is trileaflet. Tricuspid Valve: Tricuspid valve leaflets are normal in appearance and function. No tricuspid regurgitation. No tricuspid valve stenosis. Pulmonary artery pressure normal. Pulmonic Valve: Pulmonic leaflets exhibit normal cuspal separation. No pulmonic valve regurgitation is evident. There is no pulmonic valve stenosis. Aorta: The aorta is normal. The aortic root size in M-mode measures 3.7 cm. The ascending aorta measures 3.1 cm. Aorta Measurements AoRoot, MM is 3.7 cm. Pulmonary Artery: The pulmonary artery morphology appears normal. IVC: The inferior vena cava is normal in size and course. Pericardium: No pericardial effusion. No pleural effusion present. Patient: LEIGH WARD Study Date: 11/19/2018 Page 2 of 3 11:49 AM Exam Details Procedure Ordered: Echo (No Signature Object) Patient: LEIGH WARD Study Date: 11/19/2018 Page 3 of 3 11:49 AM [id number]
--- NOTE | 2018-11-19 14:46 | ASMTCMCOM ---
CM Note CM Note Notes: Pts case discussed in tx rounds. Pt is a 28 y/o man admitted for chest pain. Pt will most likely d/c home without any needs. Referral made to [facility]. Cm available for changes. Plan: Independent Date Signed: 11/19/2018 02:45 PM Electronically Signed By:HSOLA Locke
--- NOTE | 2018-11-19 15:16 | HOSPPROG ---
Hospitalist Progress Note Assessment/Plan: 28 yo M with family hx of CAD and hx of recurrent chest pain of uncertain etiology presenting from cardiology office with severe chest pain, headache, nausea and vomiting following taking a 10mg imdur. # chest pain: severe initially, now resolved but back to his usual chronic baseline chest pain. He is followed by cardiology for this, has had cardiac cath in 2017, stress test, holter monitor and no clear etiology found. He continues to experience dull chest pain/pressure nearly continuously, worse with exertion of unclear etiology. On day of admission given a dose of imdur by cardiology, and shortly after that with severe chest pain/tong/n/v. Troponin and EKG negative for acute ischemia. TTE ordered by cardiology this AM showing no acute abnormalities. Await further recommendation for cardiology. Esophageal spasms also in differential given patient's age and symptoms, will consider trial of CCB if cardiac w/u negative. # headache/nausea/vomiting: reportedly initially severe, now main sxs is headache. Seems strange as a reaction to low dose isosorbide mononitrate, but certainly sxs developed immediately after taking it, as above. Labs unremarkable , drug screen negative # paroxysmal a fib: patient recently turned his holter monitor in and found to have short runs of a fib, unclear if this is related to his recurrent chest pain given that it is not very frequent, on metoprolol as an OP, may be contributing as patient endorses SOB, dizziness, and LH with chest pain episodes Subjective: Pt reports dull L sided chest pain this afternoon Objective: Vital Signs Temp Pulse Resp BP Pulse Ox 37.0 C 63 18 113/64 98 11/19/18 10:52 11/19/18 10:52 11/19/18 10:52 11/19/18 10:52 11/19/18 10:52 11/18/18 11/19/18 11/20/18 05:59 05:59 05:59 Intake Total 2490 3340 Output Total 400 2000 Balance 2090 1340 - Physical Exam Constitutional: uncomfortable Eyes: PERRL Ears, Nose, Mouth, Throat: moist mucous membranes Cardiovascular: regular rate and rhythym Respiratory: no respiratory distress Gastrointestinal: soft, non-tender abdomen Genitourinary: no bladder fullness Skin: warm Musculoskeletal: full muscle strength Neurologic: AAOx3 Psychiatric: interacting appropriately ICD10 Worksheet Patient Problems: Problems Problem Status Onset Chest pain Acute
[2018-11-19] MEDS: METOPROLOL TARTRATE 25 MG TAB PO SCH (21:48)
--- NOTE | 2018-11-20 02:34 | GCON ---
[f rep st] CONSULTATION CARDIOLOGY CONSULTATION DATE OF CONSULTATION: 11/19/2018 CONSULTING PHYSICIAN: Dr. Brittni Duenas INDICATION FOR CONSULTATION: Chest pain. HISTORY OF PRESENT ILLNESS: The patient is a pleasant 28-year-old gentleman with a known history of episodic chest discomfort, who has been followed by my colleague, Dr. Joe Russell. The patient was j ust seen in the office yesterday after a recent visit to an emergency department with complaints of c hest pain. Dr. Russell started him on Imdur 10 mg daily in addition to his underlying metoprolol tart rate 25 mg once daily and aspirin 81 mg daily. Of note, he also has a new diagnosis of atrial fibrillation that was discovered on a Holter monitor. Holter monitor demonstrated a 5-minute episode of atrial fibrillation on October 18, 2018, that occurr ed early in the morning. The patient states that shortly after taking the Imdur that he developed an intense headache, followe d by nausea and vomiting and exacerbation of his chest discomfort prompting him to seek medical atten tion at [facility]. ECG in the emergency department demonstrated sinus rhythm or sin us bradycardia at 47 beats per minute with evidence of early repolarization and isolated premature at rial contraction. No evidence of ischemia or infarction. Troponin on admission was unremarkable. Currently, at the time of my exam, he is complaining of mild substernal chest discomfort which he say s is his baseline level of discomfort. He denies any complaints of nausea, vomiting, or diaphoresis. He denies complaints of shortness of breath or dyspnea on exertion. He has no complaints of PND, ort hopnea, or lower extremity edema. He denies palpitations, near-syncope, or syncope. PAST MEDICAL HISTORY: 1. Intermittent episodes of chest pain. 2. New onset of paroxysmal atrial fibrillation detected on recent Holter monitor with 5-minute episo de of atrial fibrillation on October 18, 2018. CHADS-VASc score 0. PAST SURGICAL HISTORY: History of finger surgery in 1991. MEDICATIONS ON ADMISSION: Aspirin 81 mg daily and metoprolol tartrate 25 mg p.o. q.h.s. ALLERGIES TO MEDICATIONS: None. FAMILY HISTORY: Family history of premature coronary artery disease in all of his grandparents. His mother has a history of CVA. PHYSICAL EXAMINATION: GENERAL: He is awake, alert, oriented, appropriate. Physically fit appearing , healthy 28-year-old gentleman in no apparent distress. NECK: There is no evidence of JVP or carot id bruits. LUNGS: Clear to auscultation bilaterally. CARDIAC: S1, S2. Regular rate and rhythm. No murmurs, rubs, or gallops. PMI is not displaced. ABDOMEN: Soft, nontender, nondistended. There is no pulsatile mass or abdominal bruit. EXTREMITIES: Distal pulses are intact. There is no evide nce of cyanosis, clubbing or edema. DATA: Lab work demonstrates white blood cell count of 9.22, hemoglobin of 16.2 and hematocrit of 46. 5, platelet count 211. Sodium of 140, potassium 3.9, chloride 104, bicarb 25, BUN 18, creatinine 1, calcium 9.5, magnesium 1.8. AST 28, ALT 58. Point of care troponin was 0. Two followup troponins a t 0345 this morning was less than 0.02 and repeat at 11:54 was less than 0.012. N-terminal proBNP le ss than 11. Lipase normal at 166. Complete 2D echocardiogram performed today demonstrates normal left ventricular size and function, no rmal LVEF of 60% to 65% with no wall motion abnormalities, normal right ventricular size and function . No valvular disease and no evidence of pericardial effusion. In reviewing his records, he did undergo diagnostic left heart catheterization secondary to similar c omplaints of chest pain on September 01, 2016. Left heart catheterization demonstrated normal coronary arteries. Of note, he did undergo an exercise treadmill stress test rather in May 2016. He is able to exercise for 11 minutes on a standard [place] protocol without symptoms or ECG changes. Recent Holter monitor from November 2018 demonstrates a brief episode of atrial fibrillation of 5 minute s from October 18, 2018, at 6:37 a.m. IMPRESSION: 1. Atypical chest pain. 2. Paroxysmal atrial fibrillation. CHADS-VASc score of 0. SUMMARY: I think the patient's recent symptoms that brought him to the ER last night were secondary to Imdur, which resulted in headache, hypotension, and subsequent nausea and vomiting, exacerbation o f his underlying chest pain. Cardiac workup has been unremarkable with serial troponins x3 that were negative. Echocardiogram demonstrates normal left ventricular size and function with no evidence of wall motion abnormality. D-dimer was negative at less than 0.27. His right ventricular size and fu nction were normal. Pulmonary pressures were unremarkable. The patient has undergone extensive cardiac workup including treadmill stress test, cardiac monitorin g, diagnostic left heart catheterization, and now recent echocardiogram demonstrating no evidence of coronary etiology for his chest symptoms. RECOMMENDATIONS: 1. Discontinue aspirin. 2. Continue metoprolol tartrate 25 mg p.o. q.h.s. 3. Discontinue Imdur. 4. Patient is stable for discharge home this evening. 5. Patient should follow up with his primary vein access technician, Dr. Russell, in the next 1-2 weeks. I have reviewed these findings with the patient. I have spoken with Dr. Benjamin of [facility] regarding my findings. /[id number]/MODL
--- NOTE | 2018-11-20 05:34 | CPEKG ---
Test Reason : OPEN Blood Pressure : / mmHG Vent. Rate : 060 BPM Atrial Rate : 059 BPM P-R Int : 142 ms QRS Dur : 091 ms QT Int : 416 ms P-R-T Axes : 031 -09 044 degrees QTc Int : 416 ms Sinus rhythm Confirmed by Madison Bermudez ([id number]) on 11/20/2018 5:33:56 AM Referred By: Brittni Duenas Confirmed By:Madison Bermudez
[2018-11-20 07:43] VITALS: BP 112/70
[2018-11-20] MEDS: ASPIRIN 81 MG CHEWABLE TAB PO SCH (09:00)
--- NOTE | 2018-11-20 12:52 | PDDCSUM ---
Discharge Summary Discharge Summary: Date of Admission: 11/18/2018 Date of Discharge: 11/20/2018 Consults: Cardiology Procedures: TTE Followup: PCP, Cardiology Hospital Course Problem List: 28 yo M with family hx of CAD and hx of recurrent chest pain of uncertain etiology presenting from cardiology office with severe chest pain, headache, nausea and vomiting following taking a 10mg imdur. # chest pain: severe initially, improved back to his usual chronic baseline chest pain. - He is followed by cardiology for this, has had cardiac cath in 2017, stress test, holter monitor and no clear etiology found. - He continues to experience dull chest pain/pressure nearly continuously, worse with exertion of unclear etiology. - On day of admission given a dose of imdur by cardiology, and shortly after that with severe chest pain/tong/n/v. - Troponins and EKG negative for acute ischemia. - TTE ordered by cardiology showing normal EF, no RWMA, no acute abnormalities - Evaluated by cardiology, recommending d/c ASA, imdur, continue home Metoprolol , f/u with Dr. Russell as OP - Esophageal spasms/functional chest pain also in differential given patient's age and symptoms, wuld consider trial of CCB vs. antidepressant # headache/nausea/vomiting: reportedly initially severe, now main sxs is headache. Seems strange as a reaction to low dose isosorbide mononitrate, but certainly sxs developed immediately after taking it, as above. Labs unremarkable , drug screen negative. D/c Imdur as above # paroxysmal a fib: patient recently turned his holter monitor in and found to have short runs of a fib, unclear if this is related to his recurrent chest pain given that it is not very frequent, on metoprolol as an OP Time spent on discharge was >35 minutes with >50% of time spent on patient education and counseling.
--- NOTE | 2018-11-22 07:47 | CPEKG ---
Test Reason : OPEN Blood Pressure : / mmHG Vent. Rate : 047 BPM Atrial Rate : 053 BPM P-R Int : 128 ms QRS Dur : 092 ms QT Int : 427 ms P-R-T Axes : 038 002 034 degrees QTc Int : 378 ms Sinus rhythm Supraventricular bigeminy ST elev, probable normal early repol pattern Confirmed by Jurgen Patel ([id number]) on 11/22/2018 7:46:02 AM Referred By: Jurgen Patel Confirmed By:Jurgen Patel
== END 2018-11-20 11:38 | disposition home or self-care (01) | DRG 203 ==
LOC: F2W 20:54 → OBSVTOIN 11-19 15:19
PROVIDERS: ADMIT Internal Medicine; ATTEND Internal Medicine
DX: R07.89 Other chest pain (principal); R51 Headache; R11.2 Nausea with vomiting, unspecified; I48.0 Paroxysmal atrial fibrillation; Z87.891 Personal history of nicotine dependence; Z86.11 Personal history of tuberculosis
CPT/HCPCS: 80305; 84484-ER; 96374; G0378; J2405